=== PATIENT | female | born 2000 | race Caucasian/White ===

== ENCOUNTER → 2024-08-24 | Outpatient (CLI) | payer OTHER ==
--- NOTE | 2024-08-24 11:52 | US ---
EXAMINATION TYPE: US pelvic complete DATE OF EXAM: 08/24/2024 COMPARISON: NONE CLINICAL INDICATION: Female, 24 years old with history of R10.31 RIGHT LOWER QUADRANT PAIN; Pt states RLQ pain x 1 month TECHNIQUE: Transabdominal (TA). Transabdominal grayscale sonographic images of the pelvis were acquired. Doppler imaging: Not performed. FINDINGS: Date of LMP: Pt states 1 week ago EXAM MEASUREMENTS: Uterus: 7.8 x 2.6 x 3.8 cm Endometrial Stripe: 0.3 cm Right Ovary: 2.8 x 2.2 x 2.1 cm Left Ovary: 2.8 x 2.2 x 1.8 cm 1. Uterus: Anteverted wnl 2. Endometrium: wnl 3. Right Ovary: wnl 4. Left Ovary: Dominant follicle= 2.0 x 1.6 x 1.6 cm 5. Bilateral Adnexa: wnl 6. Posterior cul-de-sac: wnl Urinary bladder is sonolucent. Posterior wall is normal. IMPRESSION: Left ovarian follicle O-RADS 2021 [email or web address] [email or web address], , 08/24/2024 11:49 AM
== END | disposition home or self-care (01) ==
LOC: RADUSWWP 10:26
PROVIDERS: ATTEND Family Medicine
DX: R10.31 Right lower quadrant pain (principal)
CPT/HCPCS: 76856